=== PATIENT | female | born 1960 | race Caucasian/White ===

== ENCOUNTER 2022-09-27 12:26 | Outpatient (CLI) | payer OTHER | END 2022-09-27 12:27 | disposition home or self-care (01) | LOC: ULT 12:26 | PROVIDERS: ATTEND Nurse Practitioner Family | DX: E04.1 Nontoxic single thyroid nodule (principal) | CPT/HCPCS: 76536 ==

== ENCOUNTER 2022-10-31 12:30 | Day surgery (SDC) | payer OTHER ==
[2022-10-27 09:34] VITALS: BMI 22.6
[2022-10-31] MEDS ORDERED: Lidocaine 1% PF 5 ML VIAL ONE (12:36)
[2022-10-31] MEDS ORDERED: Sodium Bicarbonate 2.5 MEQ/5 ML VIAL ONE (12:36)
[2022-10-31 14:11] VITALS: BP 149/75; TEMP 97.9
== END 2022-10-31 13:25 | disposition home or self-care (01) ==
LOC: ULT 12:30
PROVIDERS: ATTEND Nurse Practitioner Family
PROC: 0G9H3ZX Drainage of Right Thyroid Gland Lobe, Percutaneous Approach, Diagnostic (ICD-10-PCS; principal; 2022-10-31)
DX: E04.1 Nontoxic single thyroid nodule (principal); Z79.82 Long term (current) use of aspirin; Z79.890 Hormone replacement therapy
CPT/HCPCS: 10005; 88173; 88305

== ENCOUNTER 2024-04-03 10:31 | Outpatient (CLI) | payer MEDICARE | END 2024-04-03 10:32 | disposition home or self-care (01) | LOC: ULT 10:31 | PROVIDERS: ATTEND Specialist | DX: E04.1 Nontoxic single thyroid nodule (principal) | CPT/HCPCS: 76536 ==

== ENCOUNTER 2025-08-28 13:43 | Outpatient (CLI) | payer OTHER | END 2025-08-28 13:44 | disposition home or self-care (01) | LOC: SCSBT 13:43 | PROVIDERS: ATTEND Nurse Practitioner Family | DX: Z13.820 Encounter for screening for osteoporosis (principal); Z78.0 Asymptomatic menopausal state; M85.859 Other specified disorders of bone density and structure, unspecified thigh | CPT/HCPCS: 77080 ==